=== PATIENT | male | born 1955 | race Caucasian/White ===

== ENCOUNTER 2020-05-08 07:44 | Inpatient (IN) | payer OTHER ==
[~2020-05-08] VITALS: Ht 172.7 cm; Wt 71.2 kg
--- NOTE | 2020-05-08 10:30 | NUR ---
PATIENT ARRIVED TO UNIT DIRECT ADMIT FROM [facility]. PATIENT IS ON RA, O2 SAT 98% NO RESPIRATORY DISTRESS. PATIENT AMBULATES FROM GURNEY TO BED WITH STEADY GAIT. PATIENT PRESENTS WITH ALEMAN INSERTED AT [facility]. 3L REPORTED TO HAVE BEEN REMOVED PRIOR TO ARRIVAL. PATIENT HAS BEEN COMPLAINING OF ABD PAIN, BUT HAS HAD NO COMPLAINT DUE TO ALEMAN INSERTION. PATIENT HAS LAC AC 18G INTACT AND FLUSHED WELL. CALL LIGHT WITHIN REACH, ALL SAFETY MEASURES IN PLACE. WILL CONTINUE TO MONITOR
[2020-05-08] MEDS ORDERED: ZOLPIDEM TARTRATE 5 MG TABLET PO PRN (11:30)
[2020-05-08] MEDS ORDERED: MAG HYDROX/AL HYDROX/SIMETH 30 ML UDC PO PRN (11:30)
[2020-05-08] MEDS ORDERED: MAGNESIUM HYDROXIDE 30 ML UDC PO PRN (11:30)
[2020-05-08] MEDS ORDERED: HYDROCODONE/APAP 5/325MG TABLET PO PRN (11:30)
[2020-05-08] MEDS ORDERED: ACETAMINOPHEN 325 MG TABLET PO PRN (11:30)
[2020-05-08] MEDS ORDERED: CEFTRIAXONE 1 G in IV D5W 50 ML IV SCH (11:30)
[2020-05-08] MEDS ORDERED: ONDANSETRON HCL/PF 4 MG/2 ML VIAL IVP PRN (11:30)
[2020-05-08] MEDS ORDERED: OMEP20CA15 PO (11:50)
[2020-05-08] MEDS ORDERED: FLUT16SP BNOSTRILS (11:50)
[2020-05-08] MEDS ORDERED: OLAN15TA3 PO (11:50)
[2020-05-08] MEDS ORDERED: FLUT1BLS12 PO (11:50)
[2020-05-08] MEDS ORDERED: LOSA100T31 PO (11:50)
[2020-05-08] MEDS ORDERED: SERT-438 PO (11:50)
[2020-05-08] MEDS ORDERED: LORA10TA7 PO (11:50)
[2020-05-08] MEDS ORDERED: AMLO-213 PO (11:50)
[2020-05-08 12:00] VITALS: BP 144/78
[2020-05-08] MEDS: IV NS 0.9% 1,000 ML IV PRN (12:33)
[2020-05-08 15:10] LABS: BILIRUBIN,URINE NEGATIVE (NEGATIVE); COLOR,URINE YELLOW (YELLOW); LEUKOCYTE ESTERASE ,URINE LARGE (NEGATIVE); NITRITE, URINE NEGATIVE (NEGATIVE); PROTEIN,URINE 100 mg/dl (NEGATIVE); UGLUCOSE NEGATIVE (NEGATIVE); UROBILINOGEN,URINE 0.2 EU/dL (0.2)
[2020-05-08 15:17] LABS: BACTERIA,URINE 2+ /HPF (None Seen); RBC,URINE 81-100 /HPF (0-2); SQUAMOUS EPITHELIAL CELL,UR 0-2 /HPF (None Seen); WBC,URINE 81-100 /HPF (0-3)
[2020-05-08 16:00] VITALS: BP 136/77
--- NOTE | 2020-05-08 16:58 | NUR ---
MD MAIN CONTACTED REGARDING MED RECONCILIATION. AWAITING RESPONSE, ORDERS RECEIVED FOR DVT PUMPS
--- NOTE | 2020-05-08 19:15 | NUR ---
RN NOTE RECEIVED PT AWAKE AND ALERT/ORIENTED X 4 IN BED. ON ROOM AIR, AMBULATORY, FAYE SURG STATUS, DENIES PAIN OR DISCOMFORT, WITH LEFT AC IV RUNNING WITH NS 2 75ML/HOUR ORDERED WITHOUT COMPLICATIONS AT SITE NOTED. PLAN OF CARE DISCUSSED, CALL LIGHT WITHIN REACH, SAFETY MEASURES IN PLACE PER PROTOCOL,
--- NOTE | 2020-05-08 19:22 | NUR ---
PATIENT REMAINS IN BED NO ACUTE CHANGES IN CONDITION. PATIENT IS ORDERED DVT PUMPS, BUT REFUSES TO WEAR, AMBULATES OFTEN. NO ANTICOAGS ORDERED PER MD TSE. IV SITE REMAINS INTACT, NO SIGNS OF INFECTION OR INFILTRATION. ALL SAFETY MEASURES IN PLACE. ALL PATIENT NEEDS ENDORSED TO ONCOMING RN.
[2020-05-08 20:00] VITALS: BP 147/82
[2020-05-08] MEDS ORDERED: FLUTICASONE/SALMETEROL 1 DISK IH SCH (21:00)
[2020-05-08] MEDS: OLANZAPINE 10 MG TABLET PO SCH (21:30)
[2020-05-09] MEDS: IV NS 0.9% 1,000 ML IV PRN ×2 (01:55→18:52)
[2020-05-09 04:00] VITALS: BP 157/75
[2020-05-09] MEDS: CEFTRIAXONE 1 G in IV D5W 50 ML IV SCH (05:03)
--- NOTE | 2020-05-09 06:03 | NUR ---
RN NOTE REPORT GIVEN TO DEBBIE VERGARA FOR MARK.
--- NOTE | 2020-05-09 06:22 | NUR ---
RN NOTE PT TRANSFERRED TO ROOM 321 IN STABLE CONDITION.
[2020-05-09 06:40] LABS: BASOPHILS # (AUTO) 0.3 /CMM (0.0-0.2); BASOPHILS % (AUTO) 2.5 % (0.0-2.0); EOSINOPHILS % (AUTO) 1.2 % (0.0-6.0); HEMATOCRIT 37 % (39-51); HEMOGLOBIN 11.7 g/dL (13.5-17.5); LYMPHOCYTES # (AUTO) 1.6 /CMM (0.8-4.8); LYMPHOCYTES % (AUTO) 14.9 % (20.0-44.0); MEAN CORPUSCULAR HGB CONC 32 g/dl (31.0-36.0); MEAN CORPUSCULAR VOLUME 77 fL (80-96); MONOCYTES # (AUTO) 0.8 /CMM (0.1-1.30); MONOCYTES % (AUTO) 7.7 % (2.0-12.0); NEUTROPHILS # (AUTO) 7.7 /CMM (1.8-8.9); NEUTROPHILS % (AUTO) 73.7 % (43.0-81.0); PLATELET COUNT (AUTO) 516 /CMM (150-450); RED BLOOD CELL COUNT(AUTO) 4.78 MIL/uL (4.5-6.0); WHITE BLOOD COUNT (AUTO) 10.4 K/uL (4.3-11.0)
--- NOTE | 2020-05-09 07:00 | NUR ---
OIL WELL CABLE TOOL OPERATOR OPENING NOTE PT AWAKE AND ALERT/ORIENTED X 4 IN BED. ON ROOM AIR, AMBULATORY, MED SURG STATUS, DENIES PAIN OR DISCOMFORT, WITH LEFT AC IV RUNNING WITH NS 2 75ML/HOUR ORDERED WITHOUT COMPLICATIONS AT SITE NOTED.CALL LIGHT WITHIN REACH, SAFETY MEASURES IN PLACE PER PROTOCOL
[2020-05-09 07:23] LABS: CALCIUM, SERUM 8.5 mg/dL (8.5-10.1); CREATININE 0.9 mg/dL (0.6-1.3); PHOSPHORUS 3.7 mg/dL (2.5-4.9); POTASSIUM 3.5 mmol/L (3.5-5.1)
[2020-05-09 08:00] VITALS: BP 144/82
[2020-05-09 08:16] LABS: THYROID STIMULATING HORMONE 1.068 uIU/mL (0.358-3.74)
[2020-05-09] MEDS: SERTRALINE HCL 50 MG TABLET PO SCH (08:42)
[2020-05-09] MEDS: AMLODIPINE BESYLATE 10 MG TABLET PO SCH (08:42)
[2020-05-09] MEDS: LORATADINE 10 MG TABLET PO SCH (08:42)
[2020-05-09] MEDS: PANTOPRAZOLE 40 MG TABLET.DR PO SCH (08:42)
[2020-05-09] MEDS ORDERED: LOSARTAN POTASSIUM 50 MG TABLET PO SCH (09:00)
[2020-05-09] MEDS: FLUTICASONE/VILANTEROL 1 EACH BLST.W.DEV IH SCH (09:20)
[2020-05-09] MEDS: FLUTICASONE PROPIONATE 16 GM BOTTLE NS SCH (09:29)
[2020-05-09 12:00] VITALS: BP 132/80
--- NOTE | 2020-05-09 18:29 | NUR ---
REFRACTORY WORKER CLOSING NOTE PT AWAKE AND ALERT/ORIENTED X 4 IN BED. ON ROOM AIR, AMBULATORY, MED SURG STATUS, DENIES PAIN OR DISCOMFORT, WITH LEFT AC IV RUNNING WITH NS @ 75ML/HOUR ORDERED WITHOUT COMPLICATIONS AT SITE NOTED.CALL LIGHT WITHIN REACH, SAFETY MEASURES IN PLACE PER PROTOCOL
[2020-05-09 19:11] VITALS: BP 140/80
--- NOTE | 2020-05-09 19:30 | NUR ---
YARDER ENGINEER OPENING NOTE RECEIVED PATIENT IN BED. A/OX3. TOLERATING ROOM AIR. RESPIRATIONS ARE EVEN AND UNLABORED. NO S/S SOB NOTED. NO C/O PAIN AT THIS TIME. INNO APPARENT DISTRESS. IV ACCESS IN LAC#18 RUNNING NS@75ML/HR. ALEMAN CATHETER IS PRESENT, DRAINING TO GRAVITY, BED IS LOW AND LOCKED, HOB ELEVATED IN SEMI FOWLERS, SIDE RIALS UP X2, CALL LIGHT WITHIN REACH. WILL CONTINUE TO MONITOR THROUGHOUT SHIFT.
[2020-05-09 20:00] VITALS: BP 144/88
[2020-05-09] MEDS: OLANZAPINE 10 MG TABLET PO SCH (21:16)
[2020-05-09] MEDS: TAMSULOSIN 0.4 MG CAP.SR.24H PO SCH (21:16)
[2020-05-10] MEDS: CEFTRIAXONE 1 G in IV D5W 50 ML IV SCH (05:08)
[2020-05-10] MEDS: IV NS 0.9% 1,000 ML IV PRN ×2 (05:42→08:45)
--- NOTE | 2020-05-10 06:10 | NUR ---
MACHINIST FIRST CLASS CLOSING NOTE PATIENT RESTING IN BED. A/OX3. REMAINS TOLERATING ROOM AIR. NO RESP DISTRESS. NO C/O PAIN. NO DISTRESS. IV ACCESS MAINTAINED IN LAC#18 RUNNING NS@75ML/HR. ALEMAN CATHETER IS MAINTAINED. BED REMAINS LOW AND LOCKED, HOB ELEVATED IN SEMI FOWLERS, SIDE RIALS UP X2, CALL LIGHT WITHIN REACH. WILL ENDORSE TO ONCOMING SHIFT.
--- NOTE | 2020-05-10 07:44 | NUR ---
MS RN OPENING NOTE PT RECEIVED IN BED, ASLEEP, BUT AROUSABLE AND RESPONSIVE. PT IS A/O X 4, VERBAL, TURKMEN SPEAKING AND ABLE TO MAKE NEEDS KNOWN. PT HAS NO C/O PAIN AT THIS TIME. PT IS ON ROOM AIR WITH NO S/SX OF RESPIRATORY DISTRESS OR SOB NOTED. PT'S IV ACCESS IS ON LEFT AC G#18, PATENT, INTACT AND FLUSHING WELL, RUNNING NS AT 75 ML/HR, WITH NO S/SX OF INFILTRATION, INFECTION OR IRRITATION AT THIS TIME. SAFETY MEASURES IN PLACE: BED IN LOWEST POSITION AND LOCKED WITH BOTH UPPER SIDE RAILS UP X 2. CALL LIGHT PLACED WITHIN REACH. WILL CONTINUE TO MONITOR.
[2020-05-10 08:00] VITALS: BP 143/81
[2020-05-10] MEDS: PANTOPRAZOLE 40 MG TABLET.DR PO SCH (08:16)
[2020-05-10] MEDS: SERTRALINE HCL 50 MG TABLET PO SCH (08:43)
[2020-05-10] MEDS: AMLODIPINE BESYLATE 10 MG TABLET PO SCH (08:43)
[2020-05-10] MEDS: LORATADINE 10 MG TABLET PO SCH (08:43)
[2020-05-10] MEDS: FLUTICASONE/VILANTEROL 1 EACH BLST.W.DEV IH SCH (08:48)
[2020-05-10] MEDS: FLUTICASONE PROPIONATE 16 GM BOTTLE NS SCH (08:48)
--- NOTE | 2020-05-10 08:50 | NUR ---
MS RN NOTE PT C/O ACHING BILETERAL LEG PAIN RATED 2/10. ADMINISTERED TYLENOL 650 MG PO Q6H PRN ORDERED PER PT'S REQUEST. WILL CONTINUE TO MONITOR.
[2020-05-10 10:00] VITALS: BP 143/87
[2020-05-10] MEDS ORDERED: TAMS-12 PO (12:13)
[2020-05-10] MEDS ORDERED: SULF1TAB48 PO (12:13)
[2020-05-10 16:00] VITALS: BP 167/84
--- NOTE | 2020-05-10 17:20 | NUR ---
MS RN NOTE PT HAS NOT VOIDED SINCE D/C OF ALEMAN CATHETER. BLADDER SCAN PERFORMED, SHOWING RESIDUAL OF 1000ML. CHARGE NURSE AND MD MADE AWARE WITH ORDERS TO INSERT INDWELLING ALEMAN AND D/C HOME WITH ALEMAN. WILL CONTINUE WITH PLAN OF CARE.
--- NOTE | 2020-05-10 18:15 | NUR ---
MS RN CLOSING NOTE PT AWAKE IN BED, AROUSABLE AND RESPONSIVE. PT IS A/O X 4, VERBAL AND ABLE TO MAKE NEEDS KNOWN WITH NO C/O PAIN AT THIS TIME. PT IS ON ROOM AIR WITH NO S/SX OF RESPIRATORY DISTRESS OR SOB NOTED. PT'S IV ACCESS IS ON LEFT AC G#18, PATENT, INTACT AND FLUSHING WELL, RUNNING NS AT 75 ML/HR, WITH NO S/SX OF INFILTRATION, INFECTION OR IRRITATION AT THIS TIME. ALL CARE, NEEDS, MEDICATION AND TREATMENT GIVEN ON TIME ORDERED PER FACILITY PROTOCOL. SAFETY MEASURES MAINTAINED: BED IN LOWEST, LOCKED POSITION WITH BOTH UPPER SIDE RAILS UP X 2. CALL LIGHT PLACED WITHIN REACH. WILL ENDORSE TO RESORT HOUSEKEEPER NURSE.
--- NOTE | 2020-05-10 19:30 | NUR ---
MS/RN OPENING NOTE RECEIVED PATIENT RESTING IN BED. AWAKE, ALERT AND ORIENTED X 4. ABLE TO MAKE NEEDS KNOWN. NO COMPLAINTS OF PAIN AT THIS TIME. PATIENT TO DISCHARGE TODAY ONCE ALEMAN CATHETER IS PLACED. PATIENT IN AGREEMENT WITH ALEMAN AND DISCHARGE. IV ACCESS TO LEFT FOREARM INTACT AND PATENT. CALL LIGHT WITHIN REACH. ASPIRATION, FALL AND SAFETY PRECAUTIONS MAINTAINED. WILL CONTINUE TO MONITOR.
[2020-05-10 20:00] VITALS: BP 155/87
--- NOTE | 2020-05-10 20:00 | NUR ---
MS/RN NOTE ALEMAN CATHETER 16F INSERTED WITH PATIENT TOLERATING PROCEDURE WELL. ALEMAN DRAINED 1100CC OF YELLOW, CLEAR URINE. NO COMPLAINTS OF PAIN NOTED. PATIENT EDUCATED ON HOW TO EMPTY ALEMAN CATHETER. PATIENT AMBULATED TO BATHROOM AND EMPTIED ALEMAN WITH NO DIFFICULTIES NOTED. PATIENT COMFORTABLE DISCHARGING WITH ALEMAN. WILL CONTINUE TO MONITOR.
--- NOTE | 2020-05-10 20:30 | NUR ---
MS/RN NOTE PATIENT STATES HE WILL BE PICKED UP BY FAMILY AT APPROX. [id number].
[2020-05-10] MEDS: OLANZAPINE 10 MG TABLET PO SCH (21:11)
[2020-05-10] MEDS: TAMSULOSIN 0.4 MG CAP.SR.24H PO SCH (21:11)
[2020-05-10 21:45] VITALS: BP 132/61
--- NOTE | 2020-05-10 21:55 | NUR ---
MS/ASSOCIATE PROFESSOR OF PHILOSOPHY NOTE AT APPROX. [id number] PATIENT WAS DISCHARGED WITH ALL BELONGINGS. IV DISCONTINUED WITH TIP INTACT AND MINIMAL BLEEDING NOTE. PRESSURE DRESSING APPLIED. ID BAND REMOVED. DISCHARGE INSTRUCTIONS DISCUSSED WITH PATIENT. PATIENT VERBALLY UNDERSTANDING. REENFORED IMPORTANCE OF SETTING UP UROLOGY CONSULT WITH PATIENT AGREEING. ALEMAN CATHETER EMPTIED PRIOR TO DISCHARGE WITH 300MLS CLEAR, YELLOW URINE NOTED. PATIENT BROUGHT DOWN TO MAIN ENTRANCE VIA WHEELCHAIR. PATIENT FAMILY MEMBER HERE TO PICK PATIENT UP.
== END 2020-05-10 21:45 | disposition home or self-care (01) | DRG 501 ==
LOC: TELE1 10:22 → MEDSG1 13:28 → MED 05-09 06:12
DX: N40.1 Benign prostatic hyperplasia with lower urinary tract symptoms (principal); N39.0 Urinary tract infection, site not specified; N13.8 Other obstructive and reflux uropathy; N13.1 Hydronephrosis with ureteral stricture, not elsewhere classified; I10 Essential (primary) hypertension; N17.9 Acute kidney failure, unspecified; J44.9 Chronic obstructive pulmonary disease, unspecified; F20.9 Schizophrenia, unspecified; F17.200 Nicotine dependence, unspecified, uncomplicated
CPT/HCPCS: 36415; 80048-TC; 80061-TC; 81001; 83735-TC; 84100-TC; 84443-TC; 85025-TC; 87086-TC; G0378; J0696; J7030; J7060